=== PATIENT | male | born 1950 | race African-American/Black ===

== ENCOUNTER → 2023-09-27 | Outpatient (CLI) | payer OTHER ==
[~2023-09-27] MED LIST: ADVAIR 500/28 DISKUS IH; ALBUTEROL0.83 MG/ML; AMLODIPINE5 MG PO; ASPIRIN 81M81 MG/TA2 PO; FLOMAX 0.40.4 MG/CAP PO; FLONASE NASAL S16 GM NS; FOLIC ACID 11 MG/TA1 PO; HCTZ 25MG TAB25 MG PO; LEVAQUIN 5500 MG/TA1 PO; METHOTREXA2.5 MG/TAB PO; MICARDIS HCT 121 TA1 PO; MICARDIS80 MG PO; NORVASC 10MG10 MG PO; NORVASC 5MG5 MG/TAB PO; PREDNISONE20 MG PO; PROVENTIL0.09 MG/A1 IH; RT ADVAIR 228 DISKUS IH; RT ADVAIR 528 DISKUS IH; SINGULAIR 110 MG/TAB PO; SINGULAIR10 MG PO; VENTOLIN0.09 MG IH; ZANTAC 150150 MG PO; ZITHROMAX Z PA250 MG PO
[2023-09-27 09:30] LABS: BASO % 0.4 % (0.0-2.0); EOS # 0.1 K/mm3 (0.0-0.7); EOS % 1.5 % (0.0-4.0); GRAN # 6.3 K/mm3 (1.4-6.5); GRAN % 66.3 % (42.2-75.2); HEMATOCRIT 39.2 % (42.0-52.0); HEMOGLOBIN 12.7 g/dl (13.5-18.0); LYMPH # 2.1 K/mm3 (1.2-3.4); LYMPH % 21.8 % (20.0-51.0); MEAN CELL VOLUME 86 fl (80.0-100.0); MEAN CORPUSCULAR HEMOGLOBIN 28 pg (27-31); MEAN CORPUSCULAR HGB CONC 32 g/dl (33.0-37.0); MEAN PLATELET VOLUME 10.4 fl (7.4-10.4); MONO # 0.9 K/mm3 (0.1-0.6); MONO % 9.3 % (1.7-9.3); PLATELET COUNT 247 K/mm3 (130-400); RED BLOOD COUNT 4.54 M/mm3 (4.20-5.60); REDCELL DISTRIBUTION WIDTH-CV 13.6 % (11.5-14.5)
[2023-09-27 09:41] LABS: ALBUMIN 3.4 g/dL (3.4-4.8); BILIRUBIN,TOTAL 0.6 mg/dL (0.2-1.2); CALCIUM 9.9 mg/dL (8.4-10.2); CREATININE, serum 1.21 mg/dL (0.72-1.25); POTASSIUM 3.5 mEq/L (3.5-4.5)
== END ==
LOC: COL.LAB 08:47
PROVIDERS: Orthopaedic Surgery Sports Medicine
DX: Z01.812 Encounter for preprocedural laboratory examination (principal)

== ENCOUNTER → 2023-09-28 | Outpatient (CLI) | payer OTHER ==
[2023-09-28 09:54] LABS: URINE APPEARANCE CLEAR (CLEAR/HAZY); URINE BLOOD NEGATIVE (NEGATIVE); URINE COLOR Dark Yellow (YELLOW); URINE GLUCOSE NEGATIVE (NEGATIVE); URINE KETONE TRACE (NEGATIVE); URINE NITRATE NEGATIVE (NEGATIVE); URINE PROTEIN(semi-quant) NEGATIVE (NEGATIVE)
[2023-09-28 10:24] LABS: COLLECTION METHOD CLEAN CATCH
== END ==
LOC: COL.LAB 09:19
PROVIDERS: Orthopaedic Surgery Sports Medicine
DX: Z01.812 Encounter for preprocedural laboratory examination (principal); M17.12 Unilateral primary osteoarthritis, left knee